=== PATIENT | male | born 1950 | race Caucasian/White ===

== ENCOUNTER 2017-06-11 20:25 | Inpatient (IN) | payer OTHER ==
[~2017-06-11] VITALS: Ht 185.4 cm; Wt 126.6 kg
[~2017-06-11 20:25] MED LIST: LIPITOR10 MG
[2017-06-11 20:48] LABS: MCH 27.7 PG (29.0-34.0); MCHC 33.9 G/DL (30.0-36.0); MCV 81.6 FL (86-99); MEAN PLAT.VOLUME 10.6 uM^3 (9.0-12.4); PLATELET COUNT 249 K/uL (156-360); RBC DIS.WIDTH-CV 14.1 % (11.8-14.6); RBC DIS.WIDTH-SD 41.5 % (39-53); RED BLOOD COUNT 5.64 M/uL (4.00-5.50); WHITE BLOOD COUNT 13.7 K/uL (4.1-10.2)
[2017-06-11 21:00] LABS: CHLORIDE 102 mEq/L (99-109); POTASSIUM 4.3 mEq/L (3.7-5.4); SODIUM 138 mEq/L (136-147)
[2017-06-11 21:02] LABS: GLUCOSE 243 mg/dL (70-99)
[2017-06-11 21:03] LABS: ANION GAP 20 MEQ/L (2-14)
[2017-06-11 21:04] LABS: TOTAL BILIRUBIN 0.9 mg/dL (0.0-1.0)
[2017-06-11 21:05] LABS: ALKALINE PHOSPHATASE 79 IU/L (3-129)
[2017-06-11 21:06] LABS: GFR ESTIMATE (CALCULATED) > 59 mL/min/
[2017-06-11 21:07] LABS: UREA NITROGEN (BUN) 19 mg/dL (9-23)
[2017-06-11 22:18] LABS: ADD MIUA? YES; BILIRUBIN NEGATIVE; BLOOD SMALL; COLOR YELLOW ((YELLOW)); KETONES 80; LEUKOCYTES NEGATIVE; NITRITE NEGATIVE; PROTEIN (STRIP) 100; SPECIFIC GRAVITY 1.028 (1.000-1.030); UROBILINOGEN 0.2 MG/DL (0.2-1.0)
[2017-06-11] MEDS ORDERED: INVOKANA300 MG PO (22:22)
[2017-06-11] MEDS ORDERED: LISINOPRIL40 MG PO (22:22)
[2017-06-11] MEDS ORDERED: CIALIS5 MG PO (22:23)
[2017-06-11] MEDS ORDERED: TYLENOL ARTHRI650 MG PO (22:23)
[2017-06-11 22:25] LABS: GLUCOSE (STRIP) 500
[2017-06-11 22:36] LABS: LIPASE 1932 U/L (1.0-51.0)
[2017-06-11 22:41] LABS: BACTERIA NONE SEEN /HPF; EPITHELIAL CELLS RARE /HPF; MUCUS TRACE /LPF; RED BLOOD CELLS 0-5 /HPF (0-5); UCUL ADDED? NO; WHITE BLOOD CELLS 0-5 /HPF (0-5)
[2017-06-12 00:03] LABS: MAGNESIUM 1.7 mg/dL (1.3-2.7)
[2017-06-12 00:07] LABS: SERUM ETHYL ALCOHOL < 10 mg/dL
[2017-06-12 01:31] VITALS: BP 181/94
[2017-06-12 03:15] VITALS: BP 170/70
[2017-06-12 05:34] LABS: C-REACTIVE PROTEIN 9.1 MG/L (0-10); SAMPLE HEMOLYSIS CHECK 0; SAMPLE ICTERIC CHECK 0; SAMPLE LIPEMIA CHECK 0; TRIGLYCERIDES 55 MG/DL (Normal: <150)
[2017-06-12 05:59] LABS: EOSINOPHIL (%) 0.1 % (0-5); HEMATOCRIT 45.8 % (38.0-50.0); IMMATURE GRANULOCYTE (%) 0.5 % (0.0-0.7); IMMATURE GRANULOCYTE COUNT 0.1 K/uL; LYMPHOCYTE COUNT 1.3 K/uL (1.0-2.8); MCH 28.5 PG (29.0-34.0); MCHC 34.1 G/DL (30.0-36.0); MCV 83.7 FL (86-99); MEAN PLAT.VOLUME 10.7 uM^3 (9.0-12.4); MONOCYTE (%) 10.5 % (3-12); MONOCYTE COUNT 1.9 K/uL (0-0.8); NEUTROPHIL (%) 81.6 % (45-76); NRBC (%) 0.1 /100 WBC (0-0); PLATELET COUNT 227 K/uL (156-360); RBC DIS.WIDTH-CV 14.5 % (11.8-14.6); RBC DIS.WIDTH-SD 43.8 % (39-53); RED BLOOD COUNT 5.47 M/uL (4.00-5.50); WHITE BLOOD COUNT 18.3 K/uL (4.1-10.2)
[2017-06-12 06:25] LABS: ALKALINE PHOSPHATASE 68 IU/L (3-129); ANION GAP 13 MEQ/L (2-14); CHLORIDE 105 MEQ/L (99-109); GFR ESTIMATE (CALCULATED) > 59 mL/min/; GLUCOSE 229 mg/dL (70-99); POTASSIUM 4.7 MEQ/L (3.7-5.4); SAMPLE HEMOLYSIS CHECK 0; SAMPLE ICTERIC CHECK 0; SAMPLE LIPEMIA CHECK 0; SODIUM 138 MEQ/L (136-147); TOTAL BILIRUBIN 0.9 MG/DL (0.0-1.0); UREA NITROGEN (BUN) 21 mg/dL (9-23)
[2017-06-12 08:06] VITALS: BP 174/90
[2017-06-12 11:09] VITALS: BP 166/87
[2017-06-12 16:44] VITALS: BP 170/80
[2017-06-12 19:43] VITALS: BP 160/84
[2017-06-13 00:18] VITALS: BP 127/72
[2017-06-13 06:45] LABS: HEMATOCRIT 46.1 % (38.0-50.0); MCH 28.1 PG (29.0-34.0); MCHC 32.5 G/DL (30.0-36.0); MCV 86.3 FL (86-99); MEAN PLAT.VOLUME 10.8 uM^3 (9.0-12.4); PLATELET COUNT 200 K/uL (156-360); RBC DIS.WIDTH-CV 15.2 % (11.8-14.6); RBC DIS.WIDTH-SD 47.7 % (39-53); RED BLOOD COUNT 5.34 M/uL (4.00-5.50); WHITE BLOOD COUNT 24.8 K/uL (4.1-10.2)
[2017-06-13 07:08] LABS: ALKALINE PHOSPHATASE 56 IU/L (3-129); ANION GAP 10 MEQ/L (2-14); CHLORIDE 105 MEQ/L (99-109); GFR ESTIMATE (CALCULATED) > 59 mL/min/; GLUCOSE 185 mg/dL (70-99); POTASSIUM 4.5 MEQ/L (3.7-5.4); SAMPLE HEMOLYSIS CHECK 0; SAMPLE ICTERIC CHECK 0; SAMPLE LIPEMIA CHECK 0; SODIUM 139 MEQ/L (136-147); TOTAL BILIRUBIN 0.9 MG/DL (0.0-1.0); UREA NITROGEN (BUN) 23 mg/dL (9-23)
[2017-06-13 07:35] VITALS: BP 164/90
[2017-06-13 11:15] VITALS: BP 143/80
[2017-06-13 16:39] VITALS: BP 162/78
[2017-06-13 19:01] VITALS: BP 147/76
[2017-06-13 21:18] LABS: POINT-OF-CARE METER ID UU13113725
[2017-06-14 06:28] LABS: POINT-OF-CARE METER ID UU13113725
[2017-06-14 06:42] LABS: HEMATOCRIT 47.6 % (38.0-50.0); MCH 28.4 PG (29.0-34.0); MCHC 31.5 G/DL (30.0-36.0); MEAN PLAT.VOLUME 10.4 uM^3 (9.0-12.4); PLATELET COUNT 178 K/uL (156-360); RBC DIS.WIDTH-CV 15.1 % (11.8-14.6); RBC DIS.WIDTH-SD 50.1 % (39-53); RED BLOOD COUNT 5.29 M/uL (4.00-5.50); WHITE BLOOD COUNT 19.6 K/uL (4.1-10.2)
[2017-06-14 07:16] VITALS: BP 151/86
[2017-06-14 11:27] LABS: POINT-OF-CARE METER ID UU13113725
[2017-06-14 14:46] LABS: AMYLASE 47 IU/L (1-118); ANION GAP 8 MEQ/L (2-14); CHLORIDE 106 MEQ/L (99-109); GFR ESTIMATE (CALCULATED) > 59 mL/min/; GLUCOSE 178 mg/dL (70-99); LIPASE 70 U/L (1.0-51.0); POTASSIUM 4.1 MEQ/L (3.7-5.4); SAMPLE HEMOLYSIS CHECK 0; SAMPLE ICTERIC CHECK 0; SAMPLE LIPEMIA CHECK 0; SODIUM 140 MEQ/L (136-147); UREA NITROGEN (BUN) 21 mg/dL (9-23)
[2017-06-14 16:34] VITALS: BP 185/87
[2017-06-14 21:30] LABS: POINT-OF-CARE METER ID UU13113725
[2017-06-14 23:30] VITALS: BP 165/96
[2017-06-15 05:55] LABS: POINT-OF-CARE METER ID UU13113725
[2017-06-15 06:38] LABS: HEMATOCRIT 42.1 % (38.0-50.0); MCHC 31.4 G/DL (30.0-36.0); MCV 86.3 FL (86-99); MEAN PLAT.VOLUME 10.9 uM^3 (9.0-12.4); PLATELET COUNT 200 K/uL (156-360); RBC DIS.WIDTH-CV 14.6 % (11.8-14.6); RBC DIS.WIDTH-SD 46.8 % (39-53); RED BLOOD COUNT 4.88 M/uL (4.00-5.50); WHITE BLOOD COUNT 15.5 K/uL (4.1-10.2)
[2017-06-15 07:05] LABS: AMYLASE 29 IU/L (1-118); ANION GAP 11 MEQ/L (2-14); CHLORIDE 106 MEQ/L (99-109); GFR ESTIMATE (CALCULATED) > 59 mL/min/; GLUCOSE 161 mg/dL (70-99); LIPASE 44 U/L (1.0-51.0); POTASSIUM 4.1 MEQ/L (3.7-5.4); SAMPLE HEMOLYSIS CHECK 0; SAMPLE ICTERIC CHECK 0; SAMPLE LIPEMIA CHECK 0; SODIUM 140 MEQ/L (136-147); UREA NITROGEN (BUN) 19 mg/dL (9-23)
[2017-06-15 07:18] VITALS: BP 157/87
[2017-06-15 11:59] LABS: POINT-OF-CARE METER ID UU13113725
[2017-06-15 14:54] LABS: POINT-OF-CARE METER ID UU13113725
[2017-06-15 15:39] VITALS: BP 149/87
[2017-06-15 21:45] LABS: POINT-OF-CARE METER ID UU13113725
[2017-06-16 00:23] VITALS: BP 151/77
[2017-06-16 06:21] LABS: POINT-OF-CARE METER ID UU13113725
[2017-06-16 06:55] LABS: HEMATOCRIT 39.4 % (38.0-50.0); MCH 27.3 PG (29.0-34.0); MCV 85.5 FL (86-99); MEAN PLAT.VOLUME 10.6 uM^3 (9.0-12.4); PLATELET COUNT 202 K/uL (156-360); RBC DIS.WIDTH-CV 14.5 % (11.8-14.6); RBC DIS.WIDTH-SD 45.3 % (39-53); RED BLOOD COUNT 4.61 M/uL (4.00-5.50); WHITE BLOOD COUNT 16.6 K/uL (4.1-10.2)
[2017-06-16 07:40] LABS: AMYLASE 22 IU/L (1-118); ANION GAP 10 MEQ/L (2-14); C-REACTIVE PROTEIN 201.5 MG/L (0-10); CHLORIDE 104 MEQ/L (99-109); GFR ESTIMATE (CALCULATED) > 59 mL/min/; GLUCOSE 143 mg/dL (70-99); LIPASE 12 U/L (1.0-51.0); POTASSIUM 3.7 MEQ/L (3.7-5.4); SAMPLE HEMOLYSIS CHECK 0; SAMPLE ICTERIC CHECK 0; SAMPLE LIPEMIA CHECK 0; SODIUM 138 MEQ/L (136-147); UREA NITROGEN (BUN) 15 mg/dL (9-23)
[2017-06-16 07:47] VITALS: BP 167/83
[2017-06-16 16:34] VITALS: BP 169/84
[2017-06-16 21:00] VITALS: BP 176/97
[2017-06-16 21:18] LABS: POINT-OF-CARE METER ID UU13113725
[2017-06-16 23:25] VITALS: BP 162/76
[2017-06-17 06:52] LABS: HEMATOCRIT 36.9 % (38.0-50.0); MCH 28.1 PG (29.0-34.0); MCHC 33.1 G/DL (30.0-36.0); MEAN PLAT.VOLUME 11.1 uM^3 (9.0-12.4); PLATELET COUNT 209 K/uL (156-360); RBC DIS.WIDTH-CV 14.6 % (11.8-14.6); RBC DIS.WIDTH-SD 45.1 % (39-53); RED BLOOD COUNT 4.34 M/uL (4.00-5.50); WHITE BLOOD COUNT 15.3 K/uL (4.1-10.2)
[2017-06-17 07:21] LABS: AMYLASE 16 IU/L (1-118); ANION GAP 11 MEQ/L (2-14); CHLORIDE 105 MEQ/L (99-109); GFR ESTIMATE (CALCULATED) > 59 mL/min/; GLUCOSE 175 mg/dL (70-99); LIPASE 4 U/L (1.0-51.0); POTASSIUM 3.7 MEQ/L (3.7-5.4); SAMPLE HEMOLYSIS CHECK 0; SAMPLE ICTERIC CHECK 0; SAMPLE LIPEMIA CHECK 0; SODIUM 139 MEQ/L (136-147); UREA NITROGEN (BUN) 11 mg/dL (9-23)
[2017-06-17 07:54] VITALS: BP 188/91
[2017-06-17 15:47] VITALS: BP 195/95
[2017-06-17 17:38] VITALS: BP 174/85
[2017-06-17 19:30] VITALS: BP 141/81
[2017-06-17 22:13] LABS: POINT-OF-CARE METER ID UU13113725
[2017-06-18] VITALS (15 sets, daily range): BP systolic 126–182; BP diastolic 69–127
[2017-06-18 06:20] LABS: POINT-OF-CARE METER ID UU13113725
[2017-06-18 06:25] LABS: HEMATOCRIT 36.1 % (38.0-50.0); MCH 27.5 PG (29.0-34.0); MCV 83.6 FL (86-99); MEAN PLAT.VOLUME 10.3 uM^3 (9.0-12.4); PLATELET COUNT 222 K/uL (156-360); RBC DIS.WIDTH-CV 14.4 % (11.8-14.6); RBC DIS.WIDTH-SD 44.2 % (39-53); RED BLOOD COUNT 4.32 M/uL (4.00-5.50); WHITE BLOOD COUNT 14.2 K/uL (4.1-10.2)
[2017-06-18 06:43] LABS: ANION GAP 8 MEQ/L (2-14); CHLORIDE 104 MEQ/L (99-109); GFR ESTIMATE (CALCULATED) > 59 mL/min/; GLUCOSE 186 mg/dL (70-99); POTASSIUM 3.4 MEQ/L (3.7-5.4); SAMPLE HEMOLYSIS CHECK 0; SAMPLE ICTERIC CHECK 0; SAMPLE LIPEMIA CHECK 0; SODIUM 137 MEQ/L (136-147); UREA NITROGEN (BUN) 8 mg/dL (9-23)
[2017-06-18 08:08] LABS: BASE EXCESS -1.5 mEq/L (-3 to +3); BICARBONATE 25.6 mEq/L (22-26); CARBOXY HGB 1.9 % (0-5); METHEMOGLOBIN 1.2 % (0-1.5); PCO2 52 mm Hg (35-45); PO2 51 mm Hg (80-100)
[2017-06-18 08:09] LABS: COMMENTS - BLOOD GASES NAC+; DEVICE NC; O2 FLOW 6 L/MIN; SITE LR
[2017-06-18 09:47] LABS: TROP-I INTERPRETATION NEGATIVE; TROPONIN-I 0.01 ng/mL (0.0-0.30)
[2017-06-18 12:08] LABS: POINT-OF-CARE METER ID UU13113748
[2017-06-18 13:22] LABS: METH RESISTANT S AUREUS PCR NEGATIVE (NEGATIVE); PROBE CHECK PASS; SPECIMEN PROCESSING CONTROL PASS
[2017-06-18 16:04] LABS: POINT-OF-CARE METER ID UU14162636
[2017-06-18 23:28] LABS: POINT-OF-CARE METER ID UU13113748
[2017-06-19] VITALS (18 sets, daily range): BP systolic 111–166; BP diastolic 63–99
[2017-06-19 05:55] LABS: EOSINOPHIL (%) 0 % (0-5); IMMATURE GRANULOCYTE (%) 2.1 % (0.0-0.7); IMMATURE GRANULOCYTE COUNT 0.3 K/uL; INSTRUMENT ABS NEUTROPHIL CT 11.6 K/uL; LYMPHOCYTE COUNT 1.3 K/uL (1.0-2.8); MCH 27.6 PG (29.0-34.0); MCHC 33.7 G/DL (30.0-36.0); MCV 81.9 FL (86-99); MEAN PLAT.VOLUME 10.6 uM^3 (9.0-12.4); MONOCYTE COUNT 0.8 K/uL (0-0.8); NEUTROPHIL (%) 82.4 % (45-76); NEUTROPHIL COUNT 11.6 K/uL (1.8-6.4); PLATELET COUNT 279 K/uL (156-360); RBC DIS.WIDTH-CV 14.1 % (11.8-14.6); RBC DIS.WIDTH-SD 41.6 % (39-53); RED BLOOD COUNT 4.64 M/uL (4.00-5.50); WHITE BLOOD COUNT 14.1 K/uL (4.1-10.2)
[2017-06-19 06:38] LABS: ANION GAP 10 MEQ/L (2-14); CHLORIDE 99 MEQ/L (99-109); GFR ESTIMATE (CALCULATED) > 59 mL/min/; GLUCOSE 279 mg/dL (70-99); MAGNESIUM 1.7 mg/dl (1.3-2.7); POTASSIUM 3.6 MEQ/L (3.7-5.4); SAMPLE HEMOLYSIS CHECK 0; SAMPLE ICTERIC CHECK 0; SAMPLE LIPEMIA CHECK 0; SODIUM 139 MEQ/L (136-147); UREA NITROGEN (BUN) 16 mg/dL (9-23)
[2017-06-19 07:54] LABS: BASE EXCESS 3.5 mEq/L (-3 to +3); BICARBONATE 27.8 mEq/L (22-26); CARBOXY HGB 1.3 % (0-5); COMMENTS - BLOOD GASES A+C+; DEVICE NCHF; METHEMOGLOBIN 1.2 % (0-1.5); O2 FLOW 7 L/MIN; PCO2 40 mm Hg (35-45); PO2 61 mm Hg (80-100); SITE RR; pH 7.45 (7.35-7.45)
[2017-06-19 08:42] LABS: POINT-OF-CARE METER ID UU14208751
[2017-06-19 12:50] LABS: POINT-OF-CARE METER ID UU13113803
[2017-06-19 16:27] LABS: POINT-OF-CARE METER ID UU14208751
[2017-06-20 03:42] VITALS: BP 147/87
[2017-06-20 07:54] VITALS: BP 156/84
[2017-06-20 08:22] LABS: POINT-OF-CARE METER ID UU13113717
[2017-06-20 12:00] VITALS: BP 146/85
[2017-06-20 13:02] LABS: POINT-OF-CARE METER ID UU13113717
[2017-06-20 15:32] VITALS: BP 138/71
[2017-06-20 18:21] LABS: POINT-OF-CARE METER ID UU13113717
[2017-06-20 19:47] VITALS: BP 166/88
[2017-06-21] VITALS: BP 150/82
[2017-06-21 03:25] VITALS: BP 148/72
[2017-06-21 06:45] LABS: HEMATOCRIT 35.2 % (38.0-50.0); MCH 27.3 PG (29.0-34.0); MCHC 33.5 G/DL (30.0-36.0); MCV 81.3 FL (86-99); MEAN PLAT.VOLUME 10.6 uM^3 (9.0-12.4); PLATELET COUNT 333 K/uL (156-360); RBC DIS.WIDTH-SD 41.2 % (39-53); RED BLOOD COUNT 4.33 M/uL (4.00-5.50); WHITE BLOOD COUNT 12.4 K/uL (4.1-10.2)
[2017-06-21 07:08] LABS: ANION GAP 10 MEQ/L (2-14); CHLORIDE 101 MEQ/L (99-109); GFR ESTIMATE (CALCULATED) > 59 mL/min/; GLUCOSE 384 mg/dL (70-99); POTASSIUM 4.1 MEQ/L (3.7-5.4); SAMPLE HEMOLYSIS CHECK 0; SAMPLE ICTERIC CHECK 0; SAMPLE LIPEMIA CHECK 0; SODIUM 138 MEQ/L (136-147); UREA NITROGEN (BUN) 23 mg/dL (9-23)
[2017-06-21 07:23] LABS: EOSINOPHIL (%) 0 % (0-5); HEMATOLOGY COMMENT 1 SMEAR COMPATIBLE; IMMATURE GRANULOCYTE (%) 1.8 % (0.0-0.7); IMMATURE GRANULOCYTE COUNT 0.2 K/uL; INSTRUMENT ABS NEUTROPHIL CT 9.2 K/uL; LYMPHOCYTE COUNT 1.5 K/uL (1.0-2.8); MONOCYTE (%) 12.2 % (3-12); MONOCYTE COUNT 1.5 K/uL (0-0.8); NEUTROPHIL (%) 73.8 % (45-76); NEUTROPHIL COUNT 9.2 K/uL (1.8-6.4)
[2017-06-21 08:03] VITALS: BP 198/101
[2017-06-21] MEDS ORDERED: FOLIC ACID1 MG PO (11:33)
[2017-06-21] MEDS ORDERED: THERAGRAN1 TABLET PO (11:34)
[2017-06-21] MEDS ORDERED: LOPRESSOR25 MG PO (11:34)
[2017-06-21] MEDS ORDERED: THIAMINE HCL100 MG PO (11:34)
[2017-06-21] MEDS ORDERED: LASIX20 MG PO (11:39)
[2017-06-21] MEDS ORDERED: K-DUR10 MEQ PO (11:40)
[2017-06-21] MEDS ORDERED: ULTRAM50 MG PO (11:41)
[2017-06-21] MEDS ORDERED: PREDNISONE5 MG PO (11:47)
[2017-06-21] MEDS ORDERED: VENTOLIN HFA18 GM IH (11:48)
[2017-06-21] MEDS ORDERED: LORAZEPAM0.5 MG PO (11:49)
[2017-06-21 11:56] VITALS: BP 142/80
[2017-06-21 11:57] LABS: POINT-OF-CARE METER ID UU13113717
[2017-06-21 12:12] VITALS: BP 142/80
[2017-06-22 15:18] LABS: POINT-OF-CARE METER ID UU13113717
== END 2017-06-21 12:55 | disposition home or self-care (01) | DRG 438 ==
LOC: EME → EDBD 20:25 → EDOF 23:07 → 4WEST 23:07 → 5EAST 23:07 → 5SOUTH 23:07 → ENRESERV 23:09 → 5EAST 06-12 00:26 → ENRESERV 06-18 08:38 → 4WEST 06-18 09:23 → CANRESERV 06-18 09:26 → ENRESERV 06-18 09:26 → 4WEST 06-19 15:57 → ENRESERV 06-19 16:14 → 5SOUTH 06-19 17:57
PROVIDERS: Hospitalist; Internal Medicine; Internal Medicine Critical Care Medicine; Internal Medicine Gastroenterology
DX: K85.90 Acute pancreatitis without necrosis or infection, unspecified (principal); I10 Essential (primary) hypertension; E78.5 Hyperlipidemia, unspecified; N28.1 Cyst of kidney, acquired; E87.2 Acidosis; K76.0 Fatty (change of) liver, not elsewhere classified; F41.9 Anxiety disorder, unspecified; E11.9 Type 2 diabetes mellitus without complications; F51.01 Primary insomnia; E66.9 Obesity, unspecified; Z68.34 Body mass index [BMI] 34.0-34.9, adult; J96.01 Acute respiratory failure with hypoxia; J96.02 Acute respiratory failure with hypercapnia; J98.11 Atelectasis; K56.7 Ileus, unspecified; J44.1 Chronic obstructive pulmonary disease with (acute) exacerbation; F10.239 Alcohol dependence with withdrawal, unspecified; E87.70 Fluid overload, unspecified; J81.0 Acute pulmonary edema; I07.1 Rheumatic tricuspid insufficiency; J90 Pleural effusion, not elsewhere classified; R18.8 Other ascites; R65.10 Systemic inflammatory response syndrome (SIRS) of non-infectious origin without acute organ dysfunction; Z87.891 Personal history of nicotine dependence; Z85.51 Personal history of malignant neoplasm of bladder; Z79.4 Long term (current) use of insulin
CPT/HCPCS: 36600; 71010; 74000; 74176; 76705; 80048; 80048 91; 80053; 81003; 82150; 82803; 82948; 83605; 83690; 83735; 83880; 84100; 84478; 84484; 85025; 85027; 86140; 87641; 93005; 93306; 94640; 94640 76; 94799; 99202; 99281; 99285; C1753; C9113; G0480; J1170; J1630; J1650; J1815; J1940; J2060; J2185; J2270; J2405; J2765; J2930; J3010; J3411; J3480; J7030; J7042; J7050; J7120; J7512